=== PATIENT | female | born 1970 | race Two or more races ===

== ENCOUNTER 2019-03-01 09:15 | Inpatient (IN) | payer OTHER ==
[~2019-03-01] VITALS: Ht 157.5 cm; Wt 68.5 kg
[2019-03-01] MEDS ORDERED: COZAAR25 MG PO (10:48)
== END 2019-03-09 10:04 | disposition home or self-care (01) | DRG 661 ==
LOC: SURH 03-07 05:30 → O/R 03-07 05:30 → SURH 03-07 07:00 → EDBD 03-07 09:15 → SURH 03-07 09:15
PROVIDERS: ADMIT Urology
PROC: 0T778DZ Dilation of Left Ureter with Intraluminal Device, Via Natural or Artificial Opening Endoscopic (ICD-10-PCS; 2019-03-07)
PROC: 0TC18ZZ Extirpation of Matter from Left Kidney, Via Natural or Artificial Opening Endoscopic (ICD-10-PCS; principal; 2019-03-07 07:00)
DX: N20.0 Calculus of kidney (principal); I10 Essential (primary) hypertension